=== PATIENT | female | born 1945 | race Caucasian/White ===

== ENCOUNTER → 2019-04-04 | Day surgery (SDC) | payer MEDICARE, BC ==
--- NOTE | 2019-04-04 08:50 | MMO ---
MAMMO Brst Bx Stereo left breast History: Breast calcifications Comparison: Outside facility mammogram March 2019 Findings: Patient was brought to the stereotactic suite. All questions were answered. Informed consen t was obtained. Timeout performed. Patient's left breast was prepped and draped in normal sterile fashion. Using stereotactic guidance t he left breast calcifications upper outer quadrant were accessed using a 12-gauge needle. A total of 6 cores was obtained. Patient tolerated the procedure well without complication. Specimen mammograms demonstrated adequate calcifications. Post clip mammogram demonstrated adequate p lacement of the clip. Impression: Technically successful stereotactic guided left breast calcifications.
== END ==
LOC: MAMMO 06:49
PROVIDERS: ATTEND Internal Medicine
DX: N62 Hypertrophy of breast (principal)
CPT/HCPCS: 19081; 76098; 88305